=== PATIENT | female | born 1980 | race Caucasian/White ===

== ENCOUNTER 2024-12-20 09:45 | Outpatient (CLI) | payer OTHER, SELFPAY | END 2024-12-20 09:46 | disposition home or self-care (01) | LOC: NFLDREF 12-28 03:10 | PROVIDERS: Visit Provider Obstetrics & Gynecology | DX: N93.9 Abnormal uterine and vaginal bleeding, unspecified (principal); Z13.1 Encounter for screening for diabetes mellitus; Z13.6 Encounter for screening for cardiovascular disorders | CPT/HCPCS: 80061; 82947; 84443 ==

== ENCOUNTER 2025-01-03 17:14 | Outpatient (CLI) | payer OTHER, SELFPAY ==
--- NOTE | 2025-01-03 17:30 | CRLHL7_ITS ---
For Patients: As a result of the Century Cures Act, medical imaging exams and procedure reports are released immediately into your electronic medical record. You may view this report before your referring provider. If you have questions, please contact your health care provider. INDICATION: Abnormal uterine and vaginal bleeding COMPARISON: None. TECHNIQUE: 2D conway-scale and color Doppler images were acquired of the pelvis using a transabdominal and transvaginal approach. Transvaginal imaging performed to better visualize the endometrial stripe and ovaries. FINDINGS: Sonographic images demonstrate a normal size and smooth outer contour of the uterus. Uterus measures 8.8 cm in length by 4.4 cm in AP diameter by 4.6 cm in transverse dimension. The myometrium has a heterogeneous echotexture. The endometrial lining measures 10 mm in composite thickness. The right ovary is not visualized due to overlying bowel gas and the left ovary measures 2.3 x 1.1 x 1.6 cm. The left ovary demonstrates normal arterial and venous blood flow on color Doppler analysis. There are no suspicious fluid collections within the cul-de-sac. IMPRESSION: Endometrial thickness 1 cm. No endometrial fluid. Dictated by Derrick Kang MD @ 01/04/2025 8:15:54 AM (Electronically Signed)
== END 2025-01-03 17:15 | disposition home or self-care (01) ==
LOC: US 17:15
PROVIDERS: Visit Provider Obstetrics & Gynecology
DX: N93.9 Abnormal uterine and vaginal bleeding, unspecified (principal); R93.89 Abnormal findings on diagnostic imaging of other specified body structures
CPT/HCPCS: 76830; 76856

== ENCOUNTER 2025-01-16 08:31 | Outpatient (CLI) | payer OTHER, SELFPAY ==
--- NOTE | 2025-01-16 08:45 | CRLHL7_ITS ---
For Patients: As a result of the Century Cures Act, medical imaging exams and procedure reports are released immediately into your electronic medical record. You may view this report before your referring provider. If you have questions, please contact your health care provider. BILATERAL DIGITAL SCREENING MAMMOGRAM WITH COMPUTER-AIDED DETECTION AND TOMOSYNTHESIS CLINICAL HISTORY: Routine screening exam. COMPARISON: 09/08/2023, 07/17/2023, 11/08/2020. TECHNIQUE: Digital mammogram in CC and MLO projections including computer-aided detection (CAD). Tomosynthesis was used in this interpretation. BREAST COMPOSITION: The breasts are extremely dense, which lowers the sensitivity of mammography. FINDINGS: RIGHT Breast: Nodular density in the retroareolar plane, MLO view only, slightly medial. Probable cyst. LEFT Breast: No suspicious findings. Benign cyst again noted inferiorly. IMPRESSION: RIGHT breast asymmetry/mass. RECOMMENDATIONS: RIGHT breast ultrasound recommended. The [facility] will contact the patient. A lay language report of this examination will be provided to the patient. BI-RADS Category 0: Incomplete: Need Additional Imaging Evaluation Dictated by Derrick Kang MD @ 01/17/2025 10:50:06 AM jj/Dictated by: Derrick Kang MD @ 01/17/2025 10:50:00 AM (Electronically Signed)
== END 2025-01-16 08:32 | disposition home or self-care (01) ==
LOC: MAMMO 08:31
PROVIDERS: Visit Provider Obstetrics & Gynecology
DX: Z12.31 Encounter for screening mammogram for malignant neoplasm of breast (principal); N63.10 Unspecified lump in the right breast, unspecified quadrant
CPT/HCPCS: 77063; 77067

== ENCOUNTER 2025-01-19 08:23 | Outpatient (CLI) | payer OTHER, SELFPAY ==
--- NOTE | 2025-01-19 08:15 | CRLHL7_ITS ---
For Patients: As a result of the Century Cures Act, medical imaging exams and procedure reports are released immediately into your electronic medical record. You may view this report before your referring provider. If you have questions, please contact your health care provider. RIGHT BREAST ULTRASOUND CLINICAL HISTORY: RIGHT breast mass/asymmetry. COMPARISON: Mammogram 01/16/2025, ultrasound 11/03/2018. TECHNIQUE: Real-time ultrasound imaging of RIGHT breast with imaging documentation. FINDINGS: Targeted RIGHT breast ultrasound performed at 2 o`clock 5 cm from the nipple. In this location there is a simple circumscribed anechoic cyst which measures 2.5 x 1.0 x 2.5 cm. Additional simple circumscribed cyst at 12 o`clock 3 cm from the nipple measuring 1.8 x 1.0 x 2.1 cm. Similar anechoic cyst at 11 o`clock 4 cm from the nipple measuring 1.8 x 1.3 x 1.4 cm. IMPRESSION: Multiple simple cysts RIGHT breast measuring up to 2.5 cm. No evidence of malignancy. RECOMMENDATIONS: Routine screening mammography. Results and recommendations were discussed with the patient at the time of the exam. A lay language report of this examination will be provided to the patient. BI-RADS Category 2: Benign Dictated by Derrick Kang MD @ 01/19/2025 11:44:00 AM jj/Dictated by: Derrick Kang MD @ 01/19/2025 11:44:00 AM (Electronically Signed)
== END 2025-01-19 08:24 | disposition home or self-care (01) ==
PROVIDERS: Visit Provider Obstetrics & Gynecology
DX: N63.10 Unspecified lump in the right breast, unspecified quadrant (principal); N60.01 Solitary cyst of right breast; R92.8 Other abnormal and inconclusive findings on diagnostic imaging of breast
CPT/HCPCS: 76642